=== PATIENT | female | born 2000 | race Caucasian/White ===

== ENCOUNTER → 2018-09-02 09:40 | Outpatient (CLI) | payer OTHER, SELFPAY ==
[2018-09-03 18:16] LABS: Strep Grp B PCR NEG for Grp B Strep
== END ==
PROVIDERS: Visit Provider Family Medicine
DX: Z34.03 Encounter for supervision of normal first pregnancy, third trimester (principal); Z3A.36 36 weeks gestation of pregnancy
CPT/HCPCS: 87653

== ENCOUNTER 2018-09-22 22:01 | Inpatient (IN) | payer OTHER, SELFPAY ==
[2018-09-23 01:04] VITALS: BP 117/75
[2018-09-23 08:18] LABS: Add Manual Diff / Slide Review NO; Basophils Absolute Auto 0 /uL (0-100); Basophils Percent Auto 0.4 % (0-2); Eosinophils Absolute Auto 0 /uL (0-450); Hemoglobin 10.9 g/dL (12.0-16.0); Lymphocytes Absolute Auto 900 /uL (1100-4500); Lymphocytes Percent Auto 6.7 % (25-40); Mean Corpuscular HGB Conc 32.9 % (30-36); Mean Corpuscular Hemoglobin 27.8 PG (26-34); Mean Corpuscular Volume 84.4 fL (80-100); Monocytes Absolute Auto 700 /uL (0-900); Monocytes Percent Auto 5.3 % (3-14); Neutrophils Absolute Auto 12000 /uL (1500-7000); Neutrophils Percent Auto 87.6 % (50-75); Platelet Count 264 X10^3/uL (150-400); Red Blood Cell Count 3.91 X10^6/uL (4.0-5.2); Red Cell Distribution Width 15.6 % (11.6-14.8); White Blood Cell Count 13.7 X10^3/uL (4.5-11.0)
--- NOTE | 2018-09-23 08:19 | PM.OBHP.1 ---
OB HPI Date/Time Date of admission: 09/23/18 Date Patient Seen: 09/23/18 Time Patient Seen: 06:45 History of Present Condition Chief complaint: : 1 Para: 0 Estimated Date of Delivery: 09/30/18 Estimated Gestational Age (weeks): 39w0d Narrative: Shelly Johnson is a 18 year old at 39w0d who presented with regular painful contractions. The pt reports her contractions started around 8:30pm last night, increasing in intensity and frequency since then. Prior to presentation, were occurring every 4-5 minutes. She has had some vaginal spotting. No LOF. She continues to feel baby move regularly. History of Present care: good care Dating criteria: LMP confirmed by 1st trimester US Ultrasounds: normal mid trimester US Obstetrical complications: none Medical complications: other (hx of seizure disorder, not on medications, no seizures in more than 5 years) Preadmission Labs Blood type: A (+) positive -: Antibody screen: negative, GBS status: negative, HBsAG: negative, HIV: negative and RPR/VDLR: negative -: Chlamydia screen: not detected and Gonorrhea screen: not detected -: Rubella: immune HCT: 38.2 HCAB: negative 1 hr GTT: 72 Evaluation Evaluation Baseline heart rate: 120 Variability: Moderate (11-25) monitor accelerations: Present monitor decelerations: Absent Contraction Frequency (minutes): 4 Uterine Contraction Intensity: Strong/Firm Category of Tracing: I Cervical dilation (cm): 4 Cervical effacement (%): 90 station: 0 Laboratory results: Laboratory Tests 09/23/18 07:30 WBC 13.7 H RBC 3.91 L Hgb 10.9 L Hct 33.0 L MCV 84.4 MCH 27.8 MCHC 32.9 RDW 15.6 H Plt Count 264 Neut % (Auto) 87.6 H Lymph % (Auto) 6.7 L Webb % (Auto) 5.3 Eos % (Auto) 0.0 L Baso % (Auto) 0.4 Neut # (Auto) 04898 H Lymph # (Auto) 900 L Webb # (Auto) 700 Eos # (Auto) 0 Baso # (Auto) 0 PFSH Social History Smoking Status: Never smoker Meds Home Medications Medication Instructions Recorded Confirmed Type 1 tab PO DAILY 07/28/18 07/28/18 History vitamin,calcium,wjewelln-hhqu-chwgu acid tablet Allergies Allergy/AdvReac Type Severity Reaction Status Date / Time No Known Drug Allergies Allergy Verified 07/28/18 15:38 Exam Vital Signs (past 8 hours): - 09/23/18 01:04 Blood Pressure 117/75 Narrative Exam Narrative: Gen: NAD, sitting in bed, appears uncomfortable with contractions CV: RRR, no murmurs Resp: clear to auscultation bilaterally Abd: soft, gravid, nontender, nondistended Ext: trace edema Objective Labs Result Diagrams: 09/23/18 07:30 Labs: Laboratory Results - last 24 hr 09/23/18 07:30 WBC 13.7 H RBC 3.91 L Hgb 10.9 L Hct 33.0 L MCV 84.4 MCH 27.8 MCHC 32.9 RDW 15.6 H Plt Count 264 Neut % (Auto) 87.6 H Lymph % (Auto) 6.7 L Webb % (Auto) 5.3 Eos % (Auto) 0.0 L Baso % (Auto) 0.4 Neut # (Auto) 28086 H Lymph # (Auto) 900 L Webb # (Auto) 700 Eos # (Auto) 0 Baso # (Auto) 0 Assessment and Plan Assessment and Plan Assessment and Plan narrative: 18yo at 39w0d who presented in active labor. No significant complications with . GBS negative, Rh positive. - Expectant management, anticipate - FHT reassuring - Epidural for pain control when pt desires - GBS negative, no antibiotics indicated
--- NOTE | 2018-09-23 08:26 | P.HPOB_ITS ---
OB HPI Date/Time Date of admission: 09/23/18 Date Patient Seen: 09/23/18 Time Patient Seen: 06:45 History of Present Condition Chief complaint: : 1 Para: 0 Estimated Date of Delivery: 09/30/18 Estimated Gestational Age (weeks): 39w0d Narrative: Shelly Johnson is a 18 year old at 39w0d who presented with regular painful contractions. The pt reports her contractions started around 8:30pm last night, increasing in intensity and frequency since then. Prior to presentation, were occurring every 4-5 minutes. She has had some vaginal spotting. No LOF. She continues to feel baby move regularly. History of Present care: good care Dating criteria: LMP confirmed by 1st trimester US Ultrasounds: normal mid trimester US Obstetrical complications: none Medical complications: other (hx of seizure disorder, not on medications, no seizures in more than 5 years) Preadmission Labs Blood type: A (+) positive -: Antibody screen: negative, GBS status: negative, HBsAG: negative, HIV: negative and RPR/VDLR: negative -: Chlamydia screen: not detected and Gonorrhea screen: not detected -: Rubella: immune HCT: 38.2 HCAB: negative 1 hr GTT: 72 Evaluation Evaluation Baseline heart rate: 120 Variability: Moderate (11-25) monitor accelerations: Present monitor decelerations: Absent Contraction Frequency (minutes): 4 Uterine Contraction Intensity: Strong/Firm Category of Tracing: I Cervical dilation (cm): 4 Cervical effacement (%): 90 station: 0 Laboratory results: Laboratory Tests 09/23/18 07:30 WBC 13.7 H RBC 3.91 L Hgb 10.9 L Hct 33.0 L MCV 84.4 MCH 27.8 MCHC 32.9 RDW 15.6 H Plt Count 264 Neut % (Auto) 87.6 H Lymph % (Auto) 6.7 L Hanson % (Auto) 5.3 Eos % (Auto) 0.0 L Baso % (Auto) 0.4 Neut # (Auto) 79111 H Lymph # (Auto) 900 L Hanson # (Auto) 700 Eos # (Auto) 0 Baso # (Auto) 0 PFSH Social History Smoking Status: Never smoker Meds Home Medications Medication Instructions Recorded Confirmed Type 1 tab PO DAILY 07/28/18 07/28/18 History vitamin,calcium,lamueaur-tjhf-jfxko acid tablet Allergies Allergy/AdvReac Type Severity Reaction Status Date / Time No Known Drug Allergies Allergy Verified 07/28/18 15:38 Exam Vital Signs (past 8 hours): - 09/23/18 01:04 Blood Pressure 117/75 Narrative Exam Narrative: Gen: NAD, sitting in bed, appears uncomfortable with contractions CV: RRR, no murmurs Resp: clear to auscultation bilaterally Abd: soft, gravid, nontender, nondistended Ext: trace edema Objective Labs Result Diagrams: 09/23/18 07:30 Labs: Laboratory Results - last 24 hr 09/23/18 07:30 WBC 13.7 H RBC 3.91 L Hgb 10.9 L Hct 33.0 L MCV 84.4 MCH 27.8 MCHC 32.9 RDW 15.6 H Plt Count 264 Neut % (Auto) 87.6 H Lymph % (Auto) 6.7 L Hanson % (Auto) 5.3 Eos % (Auto) 0.0 L Baso % (Auto) 0.4 Neut # (Auto) 25980 H Lymph # (Auto) 900 L Hanson # (Auto) 700 Eos # (Auto) 0 Baso # (Auto) 0 Assessment and Plan Assessment and Plan Assessment and Plan narrative: 18yo at 39w0d who presented in active labor. No significant complications with . GBS negative, Rh positive. - Expectant management, anticipate - FHT reassuring - Epidural for pain control when pt desires - GBS negative, no antibiotics indicated
--- NOTE | 2018-09-23 11:05 | PM.OBPNLAB ---
Date/Time Date Patient Seen: 09/23/18 Time Patient Seen: 11:00 Pain Control Pain control: epidural Pelvic Exam Dilation (cm): 8 Effacement (%): 100 station: 0 Amniotic membrane status: Ruptured Comments: After informed consent, AROM performed with production of clear fluid. Contractions Contraction frequency (min): 3 Contraction pattern: Regular Contraction intensity: Strong/Firm Status status: Category l Heart Rate Baseline: 140 Monitor Accelerations: Present Monitor Decelerations: Absent Monitor Variability: Moderate Assessment and Plan Assessment: active labor Comments: 18yo at 39w0d who presented in active labor. AROM performed with clear fluid present. Good labor progression. GBS negative, Rh positive. - Expectant management, anticipate - FHT reassuring - GBS negative, no prophylaxis indicated - Epidural in place for pain control and working well
--- NOTE | 2018-09-23 16:48 | P.PCNOB_ITS ---
Delivery date: 09/23/18 Intrapartal events: None Cervical ripening method: none Induction method: none Delivery augmentation: rupture of membranes Delivery monitor: external FHT Route of delivery: Episiotomy description: None L&D Laceration Description: Perineal - 1st Degree Delivery repair: chromic Estimated blood loss (mL): 250 Anesthesia type: Epidural Complications: None Narrative: PROCEDURE: at 39w0d presented in active labor and was admitted to Labor and Delivery. The patient progressed through the 1st stage over 18 hours. Pain was controlled with an epidural. AROM was performed with production of clear fluid. The patient progressed through the 2nd stage over 1.75 hours and delivered a viable male infant with APGARs 9/9 at 16:30 via without complications. The perineum and vagina were inspected with 1st degree perineal laceration repaired with 3-O Chromic. PREPROCEDURE DIAGNOSIS: Intrauterine at 39w0d GBS negative RH positive POSTPROCEDURE DIAGNOSIS: Intrauterine at 39w0d, delivered Same as preprocedure ROM APPEARANCE: Clear BABY A DELIVERY TIME: 16:30 BABY A OUTCOME: Viable BABY A WEIGHT: 7lb11.5oz BABY A NUCHAL CORD: None PLACENTA DELIVERY TIME: 16:33 PLACENTA APPEARANCE: Intact [place] Baby 1: gender: Male Presentation: vertex position: Right Occiput Anterior Placenta delivery description: Spontaneous cord vessel description: 3 Vessels score (1 min): 9 score (5 min): 9 Plan for aftercare: Normal care
[2018-09-23 21:30] VITALS: TEMP 37.2
[2018-09-23] MEDS: IBUPROFEN 600 MG TABLET PO (21:30)
[2018-09-23] MEDS: DERMOPLAST SPRAY 20% 60 ML 1 SPRAY TOP (22:36)
[2018-09-23] MEDS: LANOLIN OINT 7 GM 1 APPLIC TOP (22:37)
[2018-09-24] MEDS: IBUPROFEN 600 MG TABLET PO (06:35)
[2018-09-24] MEDS: DOCUSATE 250 MG CAPSULE PO (08:47)
[2018-09-24] MEDS: PRENATAL VIT,CALC/IRON/FOLIC 1 TABLET 1 TAB PO (08:47)
[2018-09-24] MEDS: FERROUS GLUCONATE 324 MG TABLET PO (08:47)
--- NOTE | 2018-09-24 13:04 | P.DS_ITS ---
Discharge Providers Date of admission: 09/22/18 22:01 Discharge Date: 09/24/18 Primary care physician: Pamela Eddy MD Consults: 09/23/18 21:43 Consult to Citizenship Teacher Routine Comment: Discharge provider: Pamela Eddy MD Summary Date Patient Seen: 09/24/18 Time Patient Seen: 08:00 Procedures: Spontaneous vaginal delivery Hospital Course: The patient presented in active labor. She received an epidural for pain control. She progressed to complete after AROM was performed with clear fluid present. She has spontaneous vaginal delivery of viable baby boy at 4:30 p.m. on 09/23/2018. A small first-degree perineal laceration was repaired for hemostasis. The patient tolerated delivery well. , there were no complications. At the time of discharge she is voiding, ambulating, and passing flatus without difficulty. Her lochia was decreasing appropriately. She was breast-feeding with good latch. Her pain was adequately controlled. She will follow up in 6 weeks for her appointment. She desires the control patch for contraception, however knows that she will start with a progesterone only pill 1st. Her partner would like her to get an IUD, but the patient is not interested in this. Peripartum Data Infant Delivery Method: Natural Vaginal Laceration description: Perineal - 1st Degree Episiotomy description: None Procedures: Spontaneous vaginal delivery complications: none 1: Gender: Male Disposition of : home Discharge Diagnosis (1) Spontaneous vaginal delivery: Status: Resolved Status at Discharge Cognitive/behavioral status at discharge: oriented Functional status at discharge: independent ambulation Overall status at discharge: patient is progressing back to baseline Time Spent with Patient Total time spent providing and/or coordinating discharge services: Objective Labs Result Diagrams: 09/23/18 07:30 Exam Narrative Exam Narrative: General: No acute distress, sitting comfortably in chair, appears well CV: Regular rate and rhythm, no murmurs Respiratory: Clear to auscultation bilaterally Abdomen: Soft, nontender, nondistended, fundus firm below the umbilicus Extremities: No edema Discharge Plan Discharge Med Rec/Prescriptions Prescriptions: New acetaminophen 325 mg Tablet 650 mg PO Q6HR PRN (Reason: Pain, Mild (1-3)) Qty: 30 RF: 0 Dermoplast (with menthol) 20-0.5 % Aerosol 1 spray topical Q1HR PRN (Reason: perineal pain) Qty: 15 RF: 0 ibuprofen 600 mg Tablet 600 mg PO Q6HR PRN (Reason: Pain, Mild (1-3)) Qty: 30 RF: 0 docusate sodium 250 mg Capsule 250 mg PO DAILY Qty: 30 RF: 0 Pzu-L-Qkrsui Cream 1 applic topical PRN PRN (Reason: Tenderness) Qty: 15 RF: 0 ferrous gluconate 324 mg (38 mg iron) Tablet 324 mg PO DAILY Qty: 30 RF: 0 Continued prenat.vits,doroteo,cau-nqbd-cavxb tablet 1 tab PO DAILY RF: 0 Follow up/Referrals: Christina Graham DO [Physician] - 6 Weeks Discharge Orders: Discharge (Order); Ordered 09/24/18 Ordered By: Pamela Eddy Visit Report/Discharge Packet Instructions: DI for Labor and Delivery, Vaginal Visit Report Forms: Stroke Signs & Symptoms Discharge Data Primary Care Provider: Pamela Eddy Attending Provider: Pamela Eddy Admit Date/Time: 09/22/18 22:01
[2018-09-24 15:33] VITALS: BP 107/71; PULSE 95; RESP 18; TEMP 37.2
== END 2018-09-24 18:52 | disposition home or self-care (01) | DRG 807 ==
PROVIDERS: Admitting Provider Family Medicine; PCP Family Medicine; Visit Provider Family Medicine
DX: O70.0 First degree perineal laceration during delivery (principal); Z37.0 Single live birth; Z3A.39 39 weeks gestation of pregnancy
CPT/HCPCS: 01967; 59025; 59050; 59410; 85025; 86850; 86900; 86901; G0379

== ENCOUNTER → 2018-11-04 12:23 | Outpatient (CLI) | payer OTHER, SELFPAY ==
[2018-11-04 13:16] LABS: Add Manual Diff / Slide Review NO; Basophils Absolute Auto 0 /uL (0-100); Basophils Percent Auto 0.5 % (0-2); Eosinophils Absolute Auto 100 /uL (0-450); Eosinophils Percent Auto 1.8 % (2-4); Hematocrit 36.3 % (36-46); Hemoglobin 11.9 g/dL (12.0-16.0); Lymphocytes Absolute Auto 1400 /uL (1100-4500); Lymphocytes Percent Auto 24.5 % (25-40); Mean Corpuscular HGB Conc 32.7 % (30-36); Mean Corpuscular Hemoglobin 27.7 PG (26-34); Mean Corpuscular Volume 84.9 fL (80-100); Monocytes Absolute Auto 400 /uL (0-900); Monocytes Percent Auto 7.5 % (3-14); Neutrophils Absolute Auto 3800 /uL (1500-7000); Neutrophils Percent Auto 65.7 % (50-75); Platelet Count 224 X10^3/uL (150-400); Red Blood Cell Count 4.28 X10^6/uL (4.0-5.2); Red Cell Distribution Width 18.5 % (11.6-14.8); White Blood Cell Count 5.8 X10^3/uL (4.5-11.0)
[2018-11-04 14:26] LABS: HEMOLYSIS < 15 (0-50); Iron 59 ug/dL (37-170)
[2018-11-04 14:36] LABS: Percent Iron Saturation 14 % (15-50); Total Iron Binding Capacity 431 ug/dL (265-497); Transferrin 360 mg/dL (206-381)
== END ==
PROVIDERS: PCP Family Medicine; Visit Provider Family Medicine
DX: D64.9 Anemia, unspecified (principal)
CPT/HCPCS: 36415; 83540; 83550; 85025

== ENCOUNTER → 2019-10-28 14:36 | Outpatient (CLI) | payer BC, SELFPAY ==
[2019-10-28 15:58] LABS: Add Manual Diff / Slide Review NO; Appearance Urine UA CLEAR; Basophils Absolute Auto 0 /uL (0-100); Basophils Percent Auto 0.3 % (0-2); Bilirubin Urine UA NEGATIVE (NEGATIVE); Color Urine UA YELLOW; Eosinophils Absolute Auto 0 /uL (0-450); Eosinophils Percent Auto 0.4 % (2-4); Glucose Urine UA NEGATIVE (Negative); Hematocrit 38.8 % (36-46); Hemoglobin 13.2 g/dL (12.0-16.0); Ketones Urine UA TRACE (NEGATIVE); Leukocyte Esterase Urine UA NEGATIVE (NEGATIVE); Lymphocytes Absolute Auto 1500 /uL (1100-4500); Lymphocytes Percent Auto 16.3 % (25-40); Mean Corpuscular Hemoglobin 32.5 PG (26-34); Mean Corpuscular Volume 95.5 fL (80-100); Monocytes Absolute Auto 500 /uL (0-900); Monocytes Percent Auto 5.5 % (3-14); Neutrophils Absolute Auto 7300 /uL (1500-7000); Neutrophils Percent Auto 77.5 % (50-75); Nitrite Urine UA NEGATIVE (Negative); Occult Blood Urine UA NEGATIVE (Negative); Platelet Count 206 X10^3/uL (150-400); Protein Urine UA NEGATIVE (Negative); Red Blood Cell Count 4.07 X10^6/uL (4.0-5.2); Red Cell Distribution Width 14.4 % (11.6-14.8); Specific Gravity Urine UA 1.025 (1.000-1.035); Urobilinogen Urine UA 0.2 E.U./dL (0.2); White Blood Cell Count 9.4 X10^3/uL (4.5-11.0)
[2019-10-28 16:01] LABS: pH Urine UA 6.5 (4.5-8.0)
[2019-10-29 05:10] LABS: RPR Screen Non Reactive (Non Reactive)
[2019-10-29 08:12] LABS: Varicella IgG Antibody 1165 index (Immune >165)
[2019-10-29 16:13] LABS: Hepatitis B Surface Antigen NEGATIVE s/c (NEGATIVE); Rubella Antibody IgG 36.6 IU/mL (>15)
[2019-10-29 16:32] LABS: HIV 1 & 2 Ab/Ag 4th Gen Combo NEGATIVE (NEGATIVE); Hep C Virus Ab w/Reflex Quant NEGATIVE s/c (NEGATIVE)
== END ==
PROVIDERS: PCP Family Medicine; Referring Provider Family Medicine; Visit Provider Family Medicine
DX: Z34.91 Encounter for supervision of normal pregnancy, unspecified, first trimester (principal)
CPT/HCPCS: 36415; 80055; 81003; 86787; 86803; 86850; 86900; 86901; 87086; 87389

== ENCOUNTER → 2019-12-29 09:23 | Outpatient (CLI) | payer OTHER, SELFPAY ==
[2020-01-01 21:07] LABS: AFP, Serum 64.2 ng/mL (.); Calc Gestational Age Ultrasound (.); Estriol, Free 1.94 ng/mL (.); Inhibin A, Dimeric 157.66 pg/mL (.); Maternal Ethnicity Caucasian (.); Maternal Weight 130 lbs (.); Number of Fetuses No (.); Results Report (.); Test Results See interpretation. (.); hCG, Serum 8805 mIU/mL (.)
[2020-01-04 15:12] LABS: OSBR Risk 1 IN 4529
== END ==
PROVIDERS: PCP Family Medicine; Referring Provider Family Medicine; Visit Provider Family Medicine
DX: Z3A.16 16 weeks gestation of pregnancy (principal)
CPT/HCPCS: 36415; 82105; 82677; 84702; 86336

== ENCOUNTER → 2020-01-01 11:59 | Outpatient (CLI) | payer OTHER, SELFPAY ==
--- NOTE | 2020-01-01 11:59 | DI.US.S_ITS ---
PROCEDURE: US OB >= 14 WEEKS FETUS INDICATIONS: anatomy scan OUTSIDE/PRIOR DATING DATA: Last menstrual period (LMP): August 24, 2019. LMP-based estimated date of delivery (FREDA): May 30, 2020 . First dating scan (date and location): January 01, 2020 . Estimated date of delivery (FREDA) from first dating scan: June 01, 2020 . TECHNIQUE: Real-time scanning was performed of the fetus, with image documentation and biometric measurements. Endovaginal scanning: Not performed COMPARISON: None. FINDINGS: General: A single living intrauterine gestation is present. Presentation: Vertex. Placenta: Placental position is anterior , without previa. Amniotic fluid index: 8.9 cm, normal range is 5-24 cm. heart rate: 145 beats per minute. Maternal cervical canal: 4.1 cm long. Normal lower limit is 2.5 cm. biometrics: Biparietal diameter: 3.96 cm, correlating with 18 weeks and 0 days. Head circumference: 15.4 cm, correlating with 18 weeks and 3 days. Abdominal circumference: 12.6 cm, correlating with 18 weeks and 2 days. Femur length: 2.8 cm, correlating with 18 weeks and 4 days. Estimated gestational age from initial scan: not applicable. Composite gestational age from present scan: 18 weeks and 2 days Estimated weight and percentile: 239 [address] the fetus in the 36th percentile based on gestational age. Measurement variability for biometric dating: +/- 7 days from 14 weeks to 15 weeks 6 days gestation, +/- 10 days from 16 weeks to 21 weeks 6 days gestation, +/- 2 weeks from 22 weeks to 27 weeks 6 days gestation, +/- 3 weeks for 28 weeks gestation or later. weight reference: 4500 g or EFW >90/95% is considered macrosomia or large for gestational age. EFW <10% is small for gestational age. EFW 5% or less is considered intra-uterine growth restriction. Anatomic survey: Neuro: Ventricles are non-dilated at less than 10 mm. Cisterna magna is normal at 3-11 mm. Cerebellum is normal in size and morphology. Nuchal skin fold: Normal at less than 6 mm between 14-21 weeks gestational age. Face: Nose and lips, facial profile are normal. Spine: No evidence for spina bifida. Heart: 4-chambered heart is present, with normal ventricular outflow tracts. Diaphragm: Diaphragm is intact. Stomach: Left-sided stomach is present. Kidneys: No hydronephrosis. Normal is less than 5 mm in 2nd trimester, less than 7 mm in 3rd trimester. Cord: 3-vessel cord has orthotopic insertion. Bladder: Normal in size. Extremities: All 4 extremities identified. IMPRESSION: Single living intrauterine gestation with an estimated sonographic gestational age of approximately 18 weeks and 2 days. Unremarkable second-trimester anatomic screening survey. Dictated by: Dion Mo M.D. on 01/01/2020 at 15:59 Approved by: Dion Mo M.D. on 01/01/2020 at 16:04
== END ==
PROVIDERS: PCP Family Medicine; Referring Provider Family Medicine; Visit Provider Family Medicine
DX: Z34.92 Encounter for supervision of normal pregnancy, unspecified, second trimester (principal); Z3A.18 18 weeks gestation of pregnancy
CPT/HCPCS: 76811

== ENCOUNTER → 2020-03-30 09:21 | Outpatient (CLI) | payer BC, SELFPAY ==
[2020-03-30 11:27] LABS: Add Manual Diff / Slide Review NO; Basophils Absolute Auto 0 /uL (0-100); Basophils Percent Auto 0.3 % (0-2); Eosinophils Absolute Auto 200 /uL (0-450); Eosinophils Percent Auto 2.7 % (2-4); Hematocrit 31.2 % (36-46); Hemoglobin 10.6 g/dL (12.0-16.0); Lymphocytes Absolute Auto 1000 /uL (1100-4500); Mean Corpuscular HGB Conc 33.9 % (30-36); Mean Corpuscular Hemoglobin 30.3 PG (26-34); Mean Corpuscular Volume 89.2 fL (80-100); Monocytes Absolute Auto 700 /uL (0-900); Monocytes Percent Auto 9.1 % (3-14); Neutrophils Absolute Auto 5600 /uL (1500-7000); Neutrophils Percent Auto 74.9 % (50-75); Platelet Count 216 X10^3/uL (150-400); Red Blood Cell Count 3.49 X10^6/uL (4.0-5.2); Red Cell Distribution Width 14.1 % (11.6-14.8); White Blood Cell Count 7.5 X10^3/uL (4.5-11.0)
[2020-03-30 11:42] LABS: GTT (PREG) 1 Hour PP 50gm Dose 86 mg/dL (76-139)
== END ==
PROVIDERS: PCP Family Medicine; Referring Provider Family Medicine; Visit Provider Family Medicine
DX: Z34.90 Encounter for supervision of normal pregnancy, unspecified, unspecified trimester (principal); Z3A.26 26 weeks gestation of pregnancy
CPT/HCPCS: 36415; 82950; 85025

== ENCOUNTER 2020-04-27 10:53 | Observation (INO) | payer BC, SELFPAY ==
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
[2020-04-27 11:33] LABS: Appearance Urine UA CLEAR; Bilirubin Urine UA NEGATIVE (NEGATIVE); Color Urine UA YELLOW; Glucose Urine UA NEGATIVE (Negative); Ketones Urine UA 2+ (NEGATIVE); Leukocyte Esterase Urine UA NEGATIVE (NEGATIVE); Nitrite Urine UA NEGATIVE (Negative); Occult Blood Urine UA NEGATIVE (Negative); Protein Urine UA NEGATIVE (Negative); Urobilinogen Urine UA 0.2 E.U./dL (0.2)
[2020-04-27 11:45] LABS: pH Urine UA 6.5 (4.5-8.0)
[2020-04-27] MEDS: LACTATED RINGERS 1,000 ML 1000 ML IV (11:45)
[2020-04-27 11:46] LABS: Bacteria Urine Moderate (10-30); Culture Indicated Urine Cult Not Indicated; RBC Urine 0-1/HPF (0-5/HPF); Squamous Epithelial Cell Urine 1-5 /HPF (0-5/HPF); WBC Urine 1-5/HPF (0-5/HPF)
[2020-04-27] MEDS: NIFEdipine 10 MG CAPSULE PO ×4 (12:49→13:53)
== END 2020-04-27 14:12 | disposition home or self-care (01) ==
PROVIDERS: Admitting Provider Family Medicine; PCP Family Medicine; Referring Provider Family Medicine; Visit Provider Family Medicine
DX: O47.03 False labor before 37 completed weeks of gestation, third trimester (principal); Z3A.35 35 weeks gestation of pregnancy
CPT/HCPCS: 59025; 59050; 81001; 96360; G0378; G0379

== ENCOUNTER → 2020-05-03 09:01 | Outpatient (CLI) | payer BC, SELFPAY ==
[2020-05-04 07:43] LABS: Strep Grp B PCR NEG for Grp B Strep
== END ==
PROVIDERS: PCP Family Medicine; Visit Provider Family Medicine
DX: Z34.90 Encounter for supervision of normal pregnancy, unspecified, unspecified trimester (principal); Z3A.36 36 weeks gestation of pregnancy
CPT/HCPCS: 87653

== ENCOUNTER 2020-05-15 21:31 | Outpatient (CLI) | payer BC, SELFPAY ==
[2020-05-15 21:53] LABS: RBC Urine None Seen (0-5/HPF)
[2020-05-15 21:54] LABS: Appearance Urine UA CLEAR; Bilirubin Urine UA NEGATIVE (NEGATIVE); Color Urine UA YELLOW; Glucose Urine UA NEGATIVE (Negative); Ketones Urine UA TRACE (NEGATIVE); Leukocyte Esterase Urine UA NEGATIVE (NEGATIVE); Nitrite Urine UA NEGATIVE (Negative); Occult Blood Urine UA NEGATIVE (Negative); Protein Urine UA NEGATIVE (Negative); Specific Gravity Urine UA 1.015 (1.000-1.035); Urobilinogen Urine UA 0.2 E.U./dL (0.2)
[2020-05-15 21:59] LABS: WBC Urine 0-1/HPF (0-5/HPF); pH Urine UA 6.5 (4.5-8.0)
[2020-05-15 22:00] LABS: Bacteria Urine Moderate (10-30); Culture Indicated Urine Cult Not Indicated; Squamous Epithelial Cell Urine 10-30 /HPF (0-5/HPF)
== END 2020-05-15 23:55 | disposition home or self-care (01) ==
LOC: LABOR 21:44 → OB 05-16 13:09
PROVIDERS: PCP Family Medicine; Referring Provider Obstetrics & Gynecology; Visit Provider Obstetrics & Gynecology
DX: Z34.83 Encounter for supervision of other normal pregnancy, third trimester (principal); Z3A.37 37 weeks gestation of pregnancy
CPT/HCPCS: 59025; 59050; 81001; G0378; G0379

== ENCOUNTER 2020-05-18 12:33 | Outpatient (CLI) | payer BC, SELFPAY ==
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
== END 2020-05-18 13:55 | disposition home or self-care (01) ==
LOC: LABOR 13:00 → OB 05-19 07:05
PROVIDERS: PCP Family Medicine; Referring Provider Family Medicine; Visit Provider Family Medicine
DX: Z34.83 Encounter for supervision of other normal pregnancy, third trimester (principal); Z3A.38 38 weeks gestation of pregnancy
CPT/HCPCS: 59025; G0378; G0379

== ENCOUNTER 2020-05-26 09:47 | Outpatient (CLI) | payer BC, SELFPAY | END 2020-05-26 11:20 | disposition home or self-care (01) | LOC: LABOR 10:22 → OB 05-27 09:22 | PROVIDERS: PCP Family Medicine; Referring Provider Family Medicine; Visit Provider Family Medicine | DX: Z34.83 Encounter for supervision of other normal pregnancy, third trimester (principal); Z3A.39 39 weeks gestation of pregnancy | CPT/HCPCS: 59025; G0378; G0379 ==

== ENCOUNTER 2020-05-26 19:35 | Inpatient (IN) | payer BC, SELFPAY ==
[2020-05-26 21:45] LABS: COVID19 -Nasal RAPID Negative (Negative)
[2020-05-26 22:47] LABS: Add Manual Diff / Slide Review NO; Basophils Absolute Auto 0 /uL (0-100); Basophils Percent Auto 0.3 % (0-2); Eosinophils Absolute Auto 200 /uL (0-450); Eosinophils Percent Auto 2.3 % (2-4); Hematocrit 30.3 % (36-46); Hemoglobin 9.9 g/dL (12.0-16.0); Lymphocytes Absolute Auto 1600 /uL (1100-4500); Lymphocytes Percent Auto 15.9 % (25-40); Mean Corpuscular HGB Conc 32.6 % (30-36); Mean Corpuscular Hemoglobin 25.4 PG (26-34); Mean Corpuscular Volume 77.9 fL (80-100); Monocytes Absolute Auto 800 /uL (0-900); Monocytes Percent Auto 7.4 % (3-14); Neutrophils Absolute Auto 7700 /uL (1500-7000); Neutrophils Percent Auto 74.1 % (50-75); Platelet Count 244 X10^3/uL (150-400); Red Blood Cell Count 3.89 X10^6/uL (4.0-5.2); Red Cell Distribution Width 17.6 % (11.6-14.8); White Blood Cell Count 10.3 X10^3/uL (4.5-11.0)
[2020-05-26 22:56] VITALS: BP 110/75
[2020-05-27] MEDS: OXYTOCIN PREMIX 30 UNIT/500 ML PLAST..BAG IV (04:52)
[2020-05-27] MEDS: LACTATED RINGERS 1,000 ML 100 ML IV ×2 (04:52→09:45)
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
[2020-05-27] MEDS: FENT 2MCG/ML BUPIV 0.125% EPI 200 MCG/100 ML PLAST..BAG 12 MCG EPIDURAL (12:28)
--- NOTE | 2020-05-27 14:16 | PM.OBPRVD ---
Labor & Delivery Delivery date: 05/27/20 Intrapartal Events: None Cervical ripening method: none Induction method: per pitocin protocol Delivery monitor: external FHT Route of delivery: Episiotomy description: None L&D Laceration Description: None Estimated blood loss (mL): 350 Anesthesia Type: Epidural Complications: None Narrative: PROCEDURE: at 39w4d presented in latent labor and was admitted to Labor and Delivery. She was started on pitocin for induction. The patient progressed through the 1st stage over 6.5 hours. SROM occurred with production of clear fluid. Pain was controlled with an epidural. The patient progressed through the 2nd stage over 1.5 hours and delivered a viable female with APGARs 9/9 at 12:55 via without complications. The baby was delivered to maternal abdomen, and cord clamped and cut after it stopped pulsating. There was a true knot noted in the umbilical cord. The perineum and vagina were inspected with no lacerations. PREPROCEDURE DIAGNOSIS: Intrauterine at 39w4d GBS negative RH positive POSTPROCEDURE DIAGNOSIS: Intrauterine at 39w4d, delivered Same as preprocedure True knot in umbilical cord ROM APPEARANCE: Clear BABY A DELIVERY TIME: 12:55 PLACENTA DELIVERY TIME: 13:04 PLACENTA APPEARANCE: Intact Baby 1: Infant gender: Female Presentation: vertex Position: Left Occiput Anterior Placenta delivery description: Spontaneous Cord Vessel Description: 3 Vessels and True Knot score (1 min): 9 score (5 min): 9 weight: 8 lb 10 oz Plan for aftercare: Routine care
[2020-05-27] MEDS: IBUPROFEN 600 MG TABLET PO ×2 (15:59→21:52)
[2020-05-27] MEDS: LANOLIN OINT 7 GM 1 APPLIC TOP (21:52)
[2020-05-28] MEDS: IBUPROFEN 600 MG TABLET PO ×2 (04:18→10:42)
[2020-05-28 06:37] LABS: Hematocrit 26.7 % (36-46); Hemoglobin 8.8 g/dL (12.0-16.0)
--- NOTE | 2020-05-28 09:15 | PM.OBDS.1 ---
Discharge Providers Provider Date of admission: 05/26/20 19:35 Discharge Date: 05/28/20 Primary care physician: Pamela Eddy MD Consults: 05/26/20 21:19 Consult to Anesthesiology Urgent Comment: Consulting Provider: Anesthesiologist Reason for consultation: pain 05/28/20 13:25 Consult to Civil Engineering Professional Routine Comment: Discharge provider: Pamela Eddy MD Summary Hospital Course Date Patient Seen: 05/28/20 Time Patient Seen: 09:00 Diagnoses: 37w4d gestation Rh positive GBS negative Anxiety and depression Hospital Course: Patient presented in latent labor. She received these Pitocin for induction. She received an epidural for pain control. She progressed to complete dilation and had a spontaneous vaginal delivery of a viable baby girl at 12:55 p.m. on 05/27/2020. There were no lacerations. , there were no complications. At the time of discharge he was voiding, ambulating, and passing flatus without difficulty. Her lochia was decreasing appropriately. Her pain was adequately controlled. She was breast-feeding with good latch. She will follow up in clinic in 6 weeks for her check. Her is planning on a vasectomy, and she may wish to consider an IUD for contraception as well. Peripartum Data Delivery Method: Natural Vaginal Laceration Description: None Episiotomy description: None Procedures: Spontaneous vaginal delivery complications: none [facility] 1: Gender: Female Disposition of : home Status at Discharge Cognitive/behavioral status at discharge: oriented Functional status at discharge: independent ambulation Overall status at discharge: patient is progressing back to baseline Time Spent with Patient Time attestation: Total time spent providing and/or coordinating discharge services: Specific discharge activities: No intercourse for 6 weeks Objective Labs Result Diagrams: 05/28/20 06:24 Labs: Laboratory Results - last 24 hr 05/28/20 06:24 Hgb 8.8 L Hct 26.7 L Exam Narrative Exam Narrative: Gen: NAD, sitting comfortably in bed, appears well CV: RRR, no murmurs Resp: clear to auscultation bilaterally Abd: soft, appropriately tender, fundus firm and below the umbilicus, nondistended Ext: no edema Discharge Plan Discharge Plan Patient Disposition: Home Discharge orders & Medications Prescriptions: Continued sertraline 50 mg tablet 150 mg PO DAILY Qty: 90 RF: 3 prenat.vits,doroteo,hob-grwi-vwloj tablet 1 tab PO DAILY RF: 0 folic acid 800 mcg tablet 0.8 mg PO DAILY RF: 0 Discontinued pyridoxine (vitamin B6) 25 mg tablet 25 mg PO DAILY RF: 0 nifedipine 10 mg Capsule 10 mg PO TID PRN (Reason: contractions) Qty: 10 RF: 0 Follow up/Referrals: Pamela Eddy MD [Primary Care Provider] - 6 Weeks Diet/Activity/Treatments Diet: Diet as Tolerated and Regular Skin/Wound/Dressing Care Report to your healthcare provider any signs of infection, such as:: chills, fever and increased pain Visit Report/Discharge Packet Instructions: DI for Labor and Delivery, Vaginal Visit Report Forms: Patient Portal/API, Stroke Signs & Symptoms Discharge Data Primary Care Provider: Pamela Eddy
[2020-05-28] MEDS: PRENATAL VIT,CALC/IRON/FOLIC 1 TABLET 1 TAB PO (09:40)
[2020-05-28] MEDS: DOCUSATE 100 MG CAPSULE PO (09:40)
[2020-05-28] MEDS: SERTRALINE 50 MG TABLET 150 MG PO (09:41)
[2020-05-28 14:05] VITALS: BP 125/86; PULSE 85; RESP 16; TEMP 36.8
== END 2020-05-28 15:49 | disposition home or self-care (01) | DRG 807 ==
PROVIDERS: Admitting Provider Obstetrics & Gynecology; PCP Family Medicine; Referring Provider Obstetrics & Gynecology; Visit Provider Obstetrics & Gynecology
DX: O69.2XX0 Labor and delivery complicated by other cord entanglement, with compression, not applicable or unspecified (principal); Z37.0 Single live birth; Z3A.39 39 weeks gestation of pregnancy; F41.9 Anxiety disorder, unspecified; O99.344 Other mental disorders complicating childbirth; Z20.822 Contact with and (suspected) exposure to COVID-19
CPT/HCPCS: 01967; 36415; 59025; 59050; 59400; 85014; 85018; 85025; 86850; 86900; 86901; 87635; C9803; G0379; J2590

== ENCOUNTER 2020-08-25 10:57 | Emergency (ER) | payer BC, SELFPAY ==
[2020-08-25] VITALS (13 sets, daily range): BP systolic 85–104; BP diastolic 52–62; PULSE 91–132; RESP 18–23; TEMP 37.2–38.2; O2SAT 95–99; BMI 25.7
--- NOTE | 2020-08-25 11:18 | DI.RAD.S_ITS ---
PROCEDURE: XR CHEST 1V INDICATIONS: suspected sepsis TECHNIQUE: One view of the chest was acquired. COMPARISON: None. FINDINGS: Surgical changes and devices: None. Lungs and pleura: Lungs are clear. No pleural effusions or pneumothorax. Mediastinum: Mediastinal contours appear normal. Heart size is normal. Bones and chest wall: No suspicious bony lesions. Overlying soft tissues appear unremarkable. IMPRESSION: No acute cardiopulmonary disease process. Dictated by: Komal Busby MD, PhD on 08/25/2020 at 12:18 Approved by: Komal Busby MD, PhD on 08/25/2020 at 12:18
[2020-08-25 11:26] LABS: Add Manual Diff / Slide Review NO; Basophils Absolute Auto 0 /uL (0-100); Basophils Percent Auto 0.2 % (0-2); Eosinophils Absolute Auto 0 /uL (0-450); Eosinophils Percent Auto 0.4 % (2-4); Hematocrit 34.2 % (36-46); Hemoglobin 11.3 g/dL (12.0-16.0); Lymphocytes Absolute Auto 700 /uL (1100-4500); Lymphocytes Percent Auto 8.5 % (25-40); Mean Corpuscular Hemoglobin 27.3 PG (26-34); Mean Corpuscular Volume 82.8 fL (80-100); Monocytes Absolute Auto 500 /uL (0-900); Monocytes Percent Auto 6.4 % (3-14); Neutrophils Absolute Auto 7000 /uL (1500-7000); Neutrophils Percent Auto 84.5 % (50-75); Platelet Count 201 X10^3/uL (150-400); Red Blood Cell Count 4.13 X10^6/uL (4.0-5.2); Red Cell Distribution Width 19.5 % (11.6-14.8); White Blood Cell Count 8.3 X10^3/uL (4.5-11.0)
[2020-08-25 11:31] LABS: INR 1.3 (0.9-1.3); Prothrombin Time 14.3 SECONDS (10.1-12.7)
[2020-08-25 11:34] LABS: PTT Partial Thromboplastin Tim 31 SECONDS (26.4-36.2)
[2020-08-25 11:36] LABS: Lactate (Lactic Acid) 0.8 mmol/L (0.7-2.1)
[2020-08-25 11:37] LABS: Alanine Aminotransferase 38 IU/L (<35); Albumin 4.6 g/dL (3.5-5.0); Albumin Globulin Ratio 1.3 (1.0-2.8); Alkaline Phosphatase 82 U/L (38-126); Aspartate Aminotransferase 36 IU/L (14-36); BUN Creatinine Ratio 27.4 (6-22); Blood Urea Nitrogen 17 mg/dL (7-17); Carbon Dioxide 22 mmol/L (22-32); Chloride 104 mmol/L (98-107); Estimated Glomerular Filt Rate > 60.0 mL/min (>60); Globulin 3.6 g/dL (1.7-4.1); Glucose 91 mg/dL (70-100); HEMOLYSIS < 15 (0-50); Lipase 73 U/L (23-300); Potassium 3.5 mmol/L (3.4-5.1); Sodium 136 mmol/L (137-145); Total Protein 8.2 g/dL (6.3-8.2)
[2020-08-25] MEDS: SODIUM CHLORIDE 0.9% 1,000 ML 1000 ML IV (11:37)
[2020-08-25 11:41] LABS: COVID19 -Nasal RAPID Negative (Negative)
[2020-08-25 11:54] LABS: Procalcitonin 0.07 ng/mL (<0.5)
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
[2020-08-25] MEDS: KETOROLAC 30 MG/ML VIAL 15 MG IV (12:04)
[2020-08-25 13:57] LABS: RBC Urine None Seen (0-5/HPF)
[2020-08-25 14:23] LABS: Bacteria Urine Moderate (10-30); Squamous Epithelial Cell Urine 0-1 /HPF (0-5/HPF); WBC Urine 5-10/HPF (0-5/HPF)
[2020-08-25 14:24] LABS: Culture Indicated Urine Specimen Cultured
== END 2020-08-25 14:57 | disposition home or self-care (01) ==
PROVIDERS: Emergency Provider Emergency Medicine; PCP Family Medicine
DX: N39.0 Urinary tract infection, site not specified (principal); R50.9 Fever, unspecified; Z20.822 Contact with and (suspected) exposure to COVID-19
CPT/HCPCS: 36415; 71045; 76705; 80053; 81003; 81015; 81025; 83605; 83690; 84145; 85025; 85610; 85730; 87040; 87077; 87086; 87186; 87635; 93005; 93010; 96361; 96374; 99284; C9803; J1885

== ENCOUNTER 2021-11-09 14:01 | Emergency (ER) | payer BC, SELFPAY ==
[2021-11-09 14:35] VITALS: BP 128/70; PULSE 95; RESP 16; TEMP 36.9; O2SAT 96; BMI 23.0
[2021-11-09 16:48] LABS: Bacteria Urine Moderate (10-30); Culture Indicated Urine Specimen Cultured; RBC Urine 0-1/HPF (0-5/HPF); Squamous Epithelial Cell Urine 1-5 /HPF (0-5/HPF); WBC Urine 1-5/HPF (0-5/HPF)
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
[2021-11-09] MEDS: ONDANSETRON 4 MG ODT SL (18:10)
[2021-11-09] MEDS: CIPROFLOXACIN 250 MG TABLET 500 MG PO (18:10)
[2021-11-09] MEDS: PHENAZOPYRIDINE 100 MG TABLET PO (18:10)
[2021-11-09 18:38] VITALS: BP 102/64; PULSE 88; RESP 18; O2SAT 99
== END 2021-11-09 18:42 | disposition home or self-care (01) ==
PROVIDERS: Emergency Medicine; Emergency Provider Nurse Practitioner Critical Care Medicine; PCP Family Medicine
DX: N39.0 Urinary tract infection, site not specified (principal)
CPT/HCPCS: 81003; 81015; 81025; 87086; 99283